=== PATIENT | male | born 2000 | race Two or more races ===

== ENCOUNTER 2025-01-19 13:41 | Emergency (ER) | payer MEDICAID, SELFPAY ==
[2025-01-19 13:42] VITALS: BMI 29.7
[2025-01-19 13:54] VITALS: BP 129/85; PULSE 90; RESP 18; TEMP 36.6; O2SAT 96
--- NOTE | 2025-01-19 14:00 | PD.EDSKIN ---
ED Skin Abcess FB-RME/HPI General Chief complaint: Skin/Abscess/Foreign Body Stated complaint: UMBILICAL INFECTION Time Seen by Provider: 01/19/25 13:43 Source: patient Arrival date/time: 01/19/25 13:41 24-year-old male with no known medical history presents to the emergency room with a chief complaint of an infection inside his umbilicus. Patient states this morning he was digging in there and pulled off a scab which caused her to be bleeding and some pus Mode of arrival: ambulatory Limitations: no limitations Related Data Previous Rx's ?Medication ?Instructions ?Recorded cetirizine 10 mg tablet (Zyrtec) 10 mg PO QDAY PRN allergy symptoms 07/29/19 #30 tabs sulfamethoxazole 800 1 tab PO BID #14 tabs 01/19/25 mg-trimethoprim 160 mg tablet (Bactrim DS) Allergies Allergy/AdvReac Type Severity Reaction Status Date / Time Penicillins Allergy Unknown RASH Verified 01/19/25 13:44 Review of Systems Review of Systems Systems Reviewed: All systems reviewed, normal except as documented Constitutional Constitutional: Reports system reviewed and no additional complaints, except as documented, Denies fatigue, Denies fever(s), Denies headache(s) and Denies weakness Eyes Eyes: Reports system reviewed and no additional complaints, except as documented, Denies blurry vision and Denies change in vision ENT Ears, Nose, Mouth, and Throat: Reports system reviewed and no additional complaints, except as documented, Denies otalgia, Denies headache(s), Denies nasal congestion, Denies throat swelling and Denies vertigo Cardiovascular Cardiovascular: Reports system reviewed and no additional complaints, except as documented, Denies chest pain, Denies dyspnea and Denies dyspnea on exertion Respiratory Respiratory: Reports system reviewed and no additional complaints, except as documented, Denies chest congestion, Denies cough, Denies dyspnea, Denies dyspnea on exertion and Denies wheezing Gastrointestinal Gastrointestinal: Reports system reviewed and no additional complaints, except as documented, Denies abdominal pain, Denies cramping, Denies nausea and Denies vomiting Genitourinary Genitourinary: Reports system reviewed and no additional complaints, except as documented, Denies dysuria and Denies hematuria Musculoskeletal Musculoskeletal: Reports system reviewed and no additional complaints, except as documented and Denies back pain Integumentary/Breasts Skin/Breast: Reports system reviewed and no additional complaints, except as documented and Reports wounds (Small abscess inside umbilicus) Neurologic Neurologic: Reports system reviewed and no additional complaints, except as documented, Denies confusion, Denies headache(s), Denies lack of coordination, Denies vertigo and Denies weakness Psychiatric Psychiatric: Reports system reviewed and no additional complaints, except as documented, Denies anxiety, Denies confusion, Denies depression, Denies paranoia, Denies suicidal ideation and Denies tactile hallucinations Endocrine Endocrine: Reports system reviewed and no additional complaints, except as documented and Denies fatigue Hematologic/Lymphatic Hematologic/Lymphatic: Reports system reviewed and no additional complaints, except as documented and Denies lymphadenopathy Allergic/Immunologic Allergic/Immunologic: Reports system reviewed and no additional complaints, except as documented, Denies throat swelling, Denies urticaria and Denies wheezing Past Medical History Social History SMOKING STATUS: Never smoker ED Exam General Limitations: Present no limitations General appearance: Present alert and in no apparent distress Head Head exam: Present atraumatic Eye Eye exam: Present normal appearance, PERRL and EOMI ENT ENT exam: Present normal exam, normal oropharynx and mucous membranes moist Neck Neck exam: Present normal inspection, full ROM and trachea midline Chest Chest inspection: Present normal inspection and symmetric chest wall rise Respiratory Respiratory exam: Present normal lung sounds bilaterally Cardiovascular Cardiovascular exam: Present regular rate, normal rhythm and normal heart sounds Abdominal Exam Abdominal exam: Present soft and normal bowel sounds Extremities Exam Extremities exam: Present normal inspection and full ROM Back Exam Back exam: Present normal inspection and full ROM Neurological Exam Neurological exam: Present alert, oriented X3 and CN II-XII intact Psychiatric Psychiatric exam: Present normal affect and normal mood Skin Skin exam: Present warm, dry, intact and normal color Expanded Skin Exam Type of lesion: Present abscess Distribution: Present abdomen Description: Present erythematous Body image:  1. Umbilical cellulitis/small abscess Course Quality Measures none Vital Signs Vital signs: Vital Signs Temperature 97.8 F 01/19/25 13:54 Pulse Rate 90 01/19/25 13:54 Respiratory Rate 18 01/19/25 13:54 Blood Pressure 129/85 H 01/19/25 13:54 Pulse Oximetry (%) 96 01/19/25 13:54 Oxygen Delivery Method Room Air 01/19/25 13:54 O2 saturation 96% within normal limits Skin / Abscess / Foreign Body MDM Narrative MDM Narrative:: 24-year-old male with no known medical history presents to the emergency room with a chief complaint of an infection inside his umbilicus. Patient states this morning he was digging in there and pulled off a scab which caused her to be bleeding and some pus Patient is hemodynamically stable and in no apparent distress Physical examination shows erythema inside the umbilicus. Patient states there was a scab inside of his bellybutton this morning which he pulled off causing there to be some drainage and discharge. At this time there were is only erythema and cellulitis. Antibiotics are sent to the patient's pharmacy Patient was discharged and educated to follow-up with primary care provider in the next 24 to 48 hours and return to the emergency room for any evidence of worsening signs or symptoms Patient data External records reviewed:: [facility] previous records Clinical information provided by:: patient Social determinants that could affect healthcare access:: none Patient has the following chronic illnesses:: No chronic illness How is presenting disease/condition affected by chronic disease/condition?: no chronic disease Evaluation data The following diagnostics were reviewed and interpreted by me:: lab results and radiology exam(s) Lab and/or radiology exams considered but not ordered:: Labs and radiology exams considered and ordered Interpretation Summary: N/A Medications / Prescriptions Medications or Prescriptions considered but not ordered:: Rx given Medication administrations:: Rx given Consultations Consultation(s) initiated? (list below): No Diagnosis Skin/Abscess Differential Diagnosis: abscess of skin or subcutaneous tissue, cellulitis and insect bites Most likely diagnosis given after review of the tests above:: Cellulitis Admission Indicated Admission indicated?: not indicated Admission Request Was there a request for admission?: No Disposition Plan Disposition Plan: Discharge Discharge Attestation Discharge Attestation: The patient and all family members were given an opportunity to ask questions and understood the discharge instructions. Discharge instructions specifically effects, indications for sooner follow up or return to the emergency department, and the expected course of current diagnosis. Patient condition: Stable Discharge Plan Plan Patient Disposition: HOME (Self Care) Disposition Comment: Stable Prescriptions/Referrals Prescriptions/Med Rec: New sulfamethoxazole-trimethoprim [Bactrim DS] 800-160 mg tablet 1 tab PO BID Qty: 14 0RF No Action cetirizine [Zyrtec] 10 mg tablet 10 mg PO QDAY PRN (Reason: allergy symptoms) Qty: 30 0RF Problem List Clinical Impression: Cellulitis Patient/Caregiver Discharge Instructions Education Materials: Discharge Instructions for Cellulitis, ED Cellulitis Additional Instructions: Please follow-up with your primary care provider in the next 24 to 48 hours. You have some cellulitis inside of your umbilicus. Antibiotics are sent to your pharmacy please pick them up and take them as indicated. For any evidence of worsening signs or symptoms return to the emergency room immediately Print Language: Irish Stand Alone Forms: Luz Marina Award Info., Patient Portal Info Letter PA/KEY ACCOUNT REPRESENTATIVE Supervising Physician PA/EDOUARD Supervising Physician: Dr. Moss
== END 2025-01-19 14:33 | disposition home or self-care (01) ==
PROVIDERS: Emergency Provider Emergency Medicine
DX: L03.316 Cellulitis of umbilicus (principal)
CPT/HCPCS: 99281

== ENCOUNTER 2025-03-08 11:44 | Emergency (ER) | payer SELFPAY ==
[2025-03-08 11:45] VITALS: BMI 29.0
[2025-03-08 12:02] VITALS: BP 126/79; PULSE 101; RESP 18; TEMP 37.1; O2SAT 100
--- NOTE | 2025-03-08 12:06 | EDNOTE_ITS ---
<Statement entered by Shala Chaves MD - 03/14/25 02:10> As co-signing physician, I was present and available for consult prn. I concur with the plan and care as documented by the midlevel provider. ED General RME/HPI General Chief complaint: Flu Like Symptoms Stated complaint: CHILLS BODY ACHES X2 DAYS Time Seen by Provider: 03/08/25 11:51 Arrival date/time: 03/08/25 11:44 CC: Cough nasal congestion headache HPI onset approximately 3 days ago. Patient was also talking about balls , in the center back. 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 Tylenol taken for the headache 1 day ago did not help . Patient denies any chest pain or difficulty breathing at this time. No other complaints Related Data Previous Rx's ?Medication ?Instructions ?Recorded cetirizine 10 mg tablet (Zyrtec) 10 mg PO QDAY PRN all ergy symptoms 07/29/19 #30 tabs sulfamethoxazole 800 1 tab PO BID #14 tabs mg-trimethoprim 160 mg tablet (Bactrim DS) Allergies Allergy/AdvReac Type Severity Reaction Status Date / Time Penicillins Allergy Unknown RASH Verified 03/08/25 11:45 Review of Systems Review of Systems Narrative Review of Systems: GEN: No fever, no chills, no weight loss EYES: No discharge, no visual changes, no pain HEENT: No ear pain, no congestion, no sore throat PULM: No shortness of breath, no cough, no congestion CV: No chest pain, no dyspnea on exertion, no palpitations GI: No nausea, no vomiting, no diarrhea, no pain, no constipation : No frequency, no urgency, no dysuria MUSC/SKEL: No joint pain, no back pain SKIN: No rash PSYCH: No hallucinations, no depression HEME/LYMPH: No easy bleeding or bruising tendencies NEURO: No weakness, + headache Past Medical History Social History SMOKING STATUS: Current some day smoker ED Exam Narrative Physical exam: [General: Obese not in cot no acute distress Head normocephalic HEENT: Eyes pupils are PERRLA EOM intact. Nose nasal congestion no discharge no epistaxis. All other subsystems of HEENT are within acceptable limits Neck is supple nontender Chest equal chest rise nontender to palpation Respiratory: Clear to auscultation no wheezes crackles or rubs CV: Rate rhythm is regular no murmurs rubs or clicks Abdomen is soft nontender no masses positive bowel sounds all 4 quadrants Back: No CVA tenderness no spinous process tenderness from cervical spine thoracic and lumbar spine Skin: Intact no petechiae rash induration ulceration or crepitus Extremities: Moving all extremity against resistance cap refill less than 2 seconds neurosensory intact Neuro: Awake alert oriented x3 Glascow coma 15 no focal deficits] Course Quality Measures none Orders Category Date Time Status Bedside Influenza A&B Antigen Test NOW Care 03/08/25 12:06 Completed Ibuprofen Tab [Motrin Tab] Med 03/08/25 12:05 Discontinued 800 mg PO X1 ONE Vital Signs Vital signs: Vital Signs Temperature 98.8 F 03/08/25 12:02 Pulse Rate 101 H 03/08/25 12:02 Respiratory Rate 18 03/08/25 12:02 Blood Pressure 126/79 03/08/25 12:02 Pulse Oximetry (%) 100 03/08/25 12:02 Oxygen Delivery Method Room Air 03/08/25 12:02 Discharge Plan Plan Patient Disposition: HOME (Self Care) Patient condition on transfer: Stable Prescriptions/Referrals Prescriptions/Med Rec: No Action cetirizine [Zyrtec] 10 mg tablet 10 mg PO QDAY PRN (Reason: allergy symptoms) Qty: 30 0RF sulfamethoxazole-trimethoprim [Bactrim DS] 800-160 mg tablet 1 tab PO BID Qty: 14 0RF Referrals: No Primary/Family,Physician [Primary Care Provider] - In 1 week Problem List Clinical Impression: Viral infection Patient/Caregiver Discharge Instructions Other Activity Instructions:: Take 800 mg ibuprofen every 8 hours as needed viral syndrome. Education Materials: ED Viral Syndrome (Adult) Print Language: Macedonian Stand Alone Forms: Luz Marina Award Info., Work/School Release, Patient Portal Info Letter PA/STOGY MAKER Supervising Physician PA/STOGY MAKER Supervising Physician: Henri Ortiz ENP MDM Patient Acuity Low Acuity (complete MDM as needed) Clinical Information Provided by: patient Meds/Rx considered, not ordered None Labs/Rad/Tests considered, not ordered None Labs Lab(s) Interpretation(s): Influenza A and B are negative. Medication Administration(s) Medication Administration History Discontinued Medications Ibuprofen (Ibuprofen Tab 400 Mg Tablet) 800 mg PO X1 ONE Stop: 03/08/25 12:06 Last Admin: 03/08/25 12:15 Dose: 800 mg Documented By: FILIPE
[2025-03-08 12:15] VITALS: TEMP 38.3
[2025-03-08] MEDS: IBUPROFEN TAB 400 MG TABLET 800 MG PO (12:15)
[2025-03-08 14:15] VITALS: BP 122/78; PULSE 67; TEMP 37.2; O2SAT 99
== END 2025-03-08 14:16 | disposition home or self-care (01) ==
PROVIDERS: Emergency Provider Emergency Medicine
DX: B34.9 Viral infection, unspecified (principal)
CPT/HCPCS: 99283; A9270

== ENCOUNTER 2025-04-09 15:05 | Emergency (ER) | payer OTHER, SELFPAY ==
[2025-04-09 15:05] VITALS: BMI 28.1
[2025-04-09 15:12] VITALS: BP 124/84; PULSE 99; RESP 20; TEMP 36.9; O2SAT 97
--- NOTE | 2025-04-09 15:27 | XR_ITS ---
Examination: Hand, left 3 views Technique: Hand AP, oblique, lateral 3 views Date and time of exam: April 09, 2025 1530 hours INDICATIONS: Lacerations to the hand today with pain involving the second third and fourth digits FINDINGS: Moderate juxta-articular bone demineralization No fractures No foreign bodies Soft tissue defects IMPRESSION: No opaque foreign bodies
--- NOTE | 2025-04-09 15:29 | EDNOTE_ITS ---
<Statement entered by Shala Chaves MD - 04/20/25 01:02> As co-signing physician, I was present and available for consult prn. I concur with the plan and care as documented by the midlevel provider. Upper Extremity Injury RME/HPI General Chief Complaint: Hand/Wrist Problems Stated Complaint: LEFT HAND CAUGHT IN FAN, NUMBNESS Time Seen by Provider: 04/09/25 15:24 Arrival date/time: 04/09/25 15:05 RME / HPI RME / HPI narrative: 25-year-old male patient was brought in by family for evaluation regarding left finger injury. Patient was working on a car, trying to fix a fan, suddenly turned on and got caught in a fan now sustaining abrasion, pain, numbness, severity mild. Patient denies any other injury. No medication was taken prior to ER visit. Tetanus vaccination is unknown Related Data Previous Rx's ?Medication ?Instructions ?Recorded cetirizine 10 mg tablet (Zyrtec) 10 mg PO QDAY PRN all ergy symptoms 07/29/19 #30 tabs sulfamethoxazole 800 1 tab PO BID #14 tabs mg-trimethoprim 160 mg tablet (Bactrim DS) ibuprofen 800 mg tablet 800 mg PO TID PRN pain #30 t abs 04/09/25 Allergies Allergy/AdvReac Type Severity Reaction Status Date / Time Penicillins Allergy Unknown RASH Verified 04/09/25 15:07 Review of Systems Review of Systems Narrative Review of Systems: Review of system reviewed and within normal limits except mentioned in HPI ED Exam Narrative Physical exam: VITAL SIGNS: Reviewed. GENERAL APPEARANCE: Alert and interactive, follows commands, no acute distress, HEAD AND FACE: Non-traumatic. ENT: PERRL, pink conjunctivitis, eyelid no trauma, Mucous membrane moist. NECK: Supple, nontender, no nuchal rigidity. CHEST: No tenderness, no crepitus, no paradoxical movement, no retractions. LUNGS: Clear, well ventilated, symmetric, no rales, no wheezing, no ronchi, no stridor, good breath sounds bilaterally. HEART: Regular rate, regular rhythm, no murmur, no gallops. ABDOMEN: Soft, positive bowel sounds, nondistended, no guarding, nontender, no rebound, no masses, RECTAL: Deferred. GENITAL: Deferred. NEUROLOGICAL: Gross motor function intact sensory function intact, Appropriate for age. MUSCULOSKELETAL: low back nontender, full range of motion. EXTREMITIES: Right 2nd, 3rd and 4th finger swelling, no deformity with abrasion, full range of motion. SKIN: Color pink, dry, no rash, no lacerations, no abrasions, no contusions. LYMPHATICS: Deferred. Course Quality Measures none Orders Category Date Time Status XR hand comp LT min 3V Stat Exams 04/09/25 15:27 Completed Ketorolac Inj [Toradol Inj] Med 04/09/25 15:27 Discontinued 30 mg IM X1 ONE TET,DIP/PERT AC (Adult)-Tdap [Boostrix Adult (Tdap) Med 04/09/25 15:27 Discontinued Vacc] 0.5 ml IMI .ONCE ONE Vital Signs Vital signs: Vital Signs Temperature 98.4 F 04/09/25 15:12 Pulse Rate 99 04/09/25 15:12 Respiratory Rate 20 04/09/25 15:12 Blood Pressure 124/84 04/09/25 15:12 Pulse Oximetry (%) 97 04/09/25 15:12 Oxygen Delivery Method Room Air 04/09/25 15:12 Extremity Injury MDM Narrative MDM Narrative:: 25-year-old male patient was brought in by family for evaluation regarding left finger injury. Patient was working on a car, trying to fix a fan, suddenly turned on and got caught in a fan now sustaining abrasion, pain, numbness, severity mild. Patient denies any other injury. No medication was taken prior to ER visit. Tetanus vaccination is unknown X-ray of the hand all came back unremarkable. Results discussed with the patient. Patient was given Toradol IM and Tdap. Dressing with Neosporin applied Patient appears nontoxic and hemodynamically stable .Decision to discharge the patient. The patient/family was given an opportunity to ask questions and understood their discharge instructions. Discharge instructions specifically included follow up provider and time frame, current and/or new medications and possible side effects, indications for sooner follow up or return to the emergency department, and the expected course of current diagnosis. Patient reports feeling better as well and giving evidence of significant clinical improvement, I believe patient is now a candidate for discharge. Patient data External records reviewed:: None Clinical information provided by:: patient Social determinants that could affect healthcare access:: none Patient has the following chronic illnesses:: none How is presenting disease/condition affected by chronic disease/condition?: exacerbated by Evaluation data The following diagnostics were reviewed and interpreted by me:: radiology exam(s) Lab and/or radiology exams considered but not ordered:: None Interpretation Summary: None Medications / Prescriptions Medications or Prescriptions considered but not ordered:: None Medication administrations:: Medication Administration History Discontinued Medications Diphtheria/Tetanus/Acell Pertussis (Diphth,Pertuss(Acell),Tet Vac 0.5 Ml Syr- Adult) 0.5 ml IMi .ONCE ONE Stop: 04/09/25 15:28 Last Admin: 04/09/25 16:05 Dose: Not Given Documented By: FILIPE Non-Admin Reason: Patient Refused Ketorolac Tromethamine (Ketorolac Inj 60 Mg/2 Ml Vial) 30 mg IM X1 ONE Stop: 04/09/25 15:28 Last Admin: 04/09/25 16:04 Dose: 30 mg Documented By: FILIPE Toradol Tdap Consultations Consultation(s) initiated? (list below): No Diagnosis Upper Extremity Injury Differential Diagnosis: other (Finger contusion finger abrasion finger fracture) Most likely diagnosis given after review of the tests above:: Finger abrasion Admission Indicated Admission indicated?: not indicated Explain why admission is indicated or not indicated:: None Admission Request Was there a request for admission?: No Disposition Plan Disposition Plan: Discharge Discharge Attestation Discharge Attestation: The patient was given an opportunity to ask questions and understood the discharge instructions. Discharge instructions specifically effects, indications for sooner follow up or return to the emergency department, and the expected course of current diagnosis. Patient condition: Stable Discharge Plan Plan Patient Disposition: HOME (Self Care) Discharge Disposition comment: Stable Prescriptions/Referrals Prescriptions/Med Rec: New ibuprofen 800 mg tablet 800 mg PO TID PRN (Reason: pain) Qty: 30 0RF No Action cetirizine [Zyrtec] 10 mg tablet 10 mg PO QDAY PRN (Reason: allergy symptoms) Qty: 30 0RF sulfamethoxazole-trimethoprim [Bactrim DS] 800-160 mg tablet 1 tab PO BID Qty: 14 0RF Referrals: No Primary/Family,Physician [Primary Care Provider] - In 1 week Problem List Clinical Impression: Abrasion of finger Patient/Caregiver Discharge Instructions Discharge Activity: activity as tolerated Education Materials: ED Abrasions Additional Instructions: Thank you for the opportunity for serving you today. You are stable for discharged . You are advised to: Follow-up with your PCP in 1 to 2 days Return to ED for worsening of symptoms Increase oral fluids Take medication as prescribed Daily dressing with bacitracin as needed Print Language: Tunisian Stand Alone Forms: Luz Marina Award Info., Patient Portal Info Letter PA/SAFETY INTERN Supervising Physician PA/SAFETY INTERN Supervising Physician: MD Surinder
[2025-04-09] MEDS: KETOROLAC INJ 60 MG/2 ML VIAL 30 MG IM (16:04)
== END 2025-04-09 19:09 | disposition home or self-care (01) ==
PROVIDERS: Emergency Provider Emergency Medicine
DX: S60.411A Abrasion of left index finger, initial encounter (principal); S60.413A Abrasion of left middle finger, initial encounter; S60.415A Abrasion of left ring finger, initial encounter; W23.0XXA Caught, crushed, jammed, or pinched between moving objects, initial encounter; Y93.89 Activity, other specified; Y92.810 Car as the place of occurrence of the external cause; Z23 Encounter for immunization; Y99.0 Civilian activity done for income or pay
CPT/HCPCS: 73130; 90471; 96372; 99283; J1885